=== PATIENT | male | born 1990 | race Caucasian/White ===

== ENCOUNTER 2018-07-08 13:57 | Emergency (ER) | payer OTHER ==
[~2018-07-08] VITALS: Ht 177.8 cm; Wt 98.4 kg
[2018-07-08] MEDS ORDERED: METHOCARBAMOL 750 MG TABLET PO ONE (14:30)
[2018-07-08] MEDS ORDERED: KETOROLAC 30 MG/1 ML IM ONE (14:30)
[2018-07-08] MEDS ORDERED: METHOCARBAMOL 750 MG TABLET ONE (14:56)
[2018-07-08] MEDS ORDERED: KETOROLAC 30 MG/1 ML ONE (14:56)
[2018-07-08 15:30] VITALS: BP 126/76
--- NOTE | 2018-07-08 15:33 | NUR ---
PT GIVEN DC INSTRUCTIONS AND SCRIPT, EDUCATED REGARDING NAPROXEN AND ROBAXAN RX. PT A&O, RESPS EVEN AND UNLABORED, NO COMPLAINT AT DC. PT EDUCATED NOT TO DRIVE D/T ROBAXAN ADMINISTERED, PT STATES MOM IS PICKING HIM UP. PT AMB TO DC DESK WITH STEADY GAIT, NADN AT DC.
== END 2018-07-08 15:34 | disposition home or self-care (01) ==
LOC: ED 15:23
DX: S39.012A Strain of muscle, fascia and tendon of lower back, initial encounter (principal); M25.562 Pain in left knee; V49.49XA Driver injured in collision with other motor vehicles in traffic accident, initial encounter; Y93.89 Activity, other specified; Y92.89 Other specified places as the place of occurrence of the external cause; Y99.8 Other external cause status
CPT/HCPCS: 72110; 96372; 99283; J1885